=== PATIENT | male | born 1990 | race African-American/Black ===

== ENCOUNTER 2017-08-07 15:05 | Emergency (ER) | payer OTHER ==
[~2017-08-07] VITALS: Ht 188 cm; Wt 70.0 kg
[~2017-08-07 15:05] MED LIST: IBUP-238 PO; LORT5TAB PO; Z.0.NO CURRENT MEDS
[2017-08-07 15:10] VITALS: BP 130/85; PULSE 109; RESP 17; TEMP 98.9; O2SAT 100
[2017-08-07 15:17] VITALS: O2SAT 100
[2017-08-07 15:33] LABS: AUTOMATED NEUTROPHIL # 7.2 TH/MM3 (1.8-7.7); BASOPHIL # 0.1 TH/MM3 (0-0.2); BASOPHIL % 0.6 % (0.0-2.0); EOSINOPHIL # 0.1 TH/MM3 (0-0.4); EOSINOPHIL % 0.8 % (0.0-4.0); HEMATOCRIT 46.5 % (39.0-51.0); HEMOGLOBIN 15.6 GM/DL (13.0-17.0); LYMPHOCYTE # 3.3 TH/MM3 (1.0-4.8); MEAN CELL VOLUME 92.5 FL (80.0-100.0); MEAN CORPUSCULAR HEMOGLOBIN 31.1 PG (27.0-34.0); MEAN CORPUSCULAR HGB CONC 33.6 % (32.0-36.0); MEAN PLATELET VOLUME 7.3 FL (7.0-11.0); MONO % 6.6 % (0.0-8.0); MONOCYTE # 0.8 TH/MM3 (0-0.9); PLATELET COUNT 309 TH/MM3 (150-450); RED BLOOD COUNT 5.03 MIL/MM3 (4.50-5.90); RED CELL DISTRIBUTION WIDTH 14.1 % (11.6-17.2); WHITE BLOOD COUNT 11.5 TH/MM3 (4.0-11.0)
[2017-08-07 16:03] LABS: BICARBONATE 25.1 MEQ/L (21.0-32.0); CALCIUM 9.1 MG/DL (8.5-10.1); CREATININE 1.07 MG/DL (0.60-1.30)
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
[2017-08-07 18:39] VITALS: BP 109/67; PULSE 87; RESP 19; O2SAT 99
[2017-08-07 19:29] VITALS: BP 115/60
== END 2017-08-07 19:30 | disposition home or self-care (01) ==
LOC: NEPC 15:05
DX: F10.129 Alcohol abuse with intoxication, unspecified (principal); S09.90XA Unspecified injury of head, initial encounter; R41.82 Altered mental status, unspecified; V47.6XXA Car passenger injured in collision with fixed or stationary object in traffic accident, initial encounter
CPT/HCPCS: 70450; 72125; 80048; 80307; 85025; 99285

== ENCOUNTER 2018-03-19 04:01 | Observation (INO) ==
[2018-03-19] MEDS ORDERED: Morphine Inj 4 MG/ML Vial IV.PUSH ONE ×2 (04:28→05:25)
[2018-03-19] MEDS ORDERED: Sod Chloride 0.9% Inj 1,000 ML IV.SIG ONE (04:28)
--- NOTE | 2018-03-19 04:32 | ED ---
HPI General Chief Complaint: Extremity Injury, Upper Stated Complaint: Arm injury Time Seen by Provider: 03/19/18 04:28 History of Present Illness HPI narrative: 27-year-old male with left wrist injury status post non-syncopal slip and fall down 4 steps just prior to arrival to the emergency department. Patient states he did not hit his head did not have loss of consciousness did not injure his neck back chest ribs abdomen pelvis or other extremities. Patient states he reached out to prevent injuring himself and injured his left wrist. Patient presents with deformity of the left wrist. Patient is right- handed. Patient denies any numbness tingling or weakness of the digits of the right hand but complains of decreased range of motion at the wrist secondary to pain. No elbow pain no shoulder pain. Related Data Home Medications Medication Instructions Recorded Confirmed No Known Home Medications 03/19/18 03/19/18 Allergies Allergy/AdvReac Type Severity Reaction Status Date / Time No Known Allergies Allergy Verified 03/19/18 04:07 Review of Systems Except as stated in HPI: all other systems reviewed are negative [facility] Medical History Medical History Patient denies medical problems (Acute) Surgical History Surgical History No history of previous surgery (Acute) Social History Social History Substance History: No History of Abuse Smoking Status: Light tobacco smoker Tobacco Type: Smokeless Tobacco How Often Do You Have a Drink Containing Alcohol: Monthly or less Recent Travel in [facility] within the Last 8 Weeks: No Recent Out of Country Travel within the Last 8 Weeks: No Immunization History Tetanus Immunization: <5 Years Hx Influenza Vaccine This Season: Yes Exam Narrative Exam Narrative: GENERAL: Well-developed well-nourished male in obvious discomfort but no acute distress no respiratory distress; GCS 15 SKIN: Focused skin assessment warm/dry. HEAD: Atraumatic. Normocephalic. EYES: Pupils equal and round. No scleral icterus. No injection or drainage. ENT: No nasal bleeding or discharge. Mucous membranes pink and moist. NECK: Trachea midline. No JVD. CARDIOVASCULAR: Regular rate and rhythm. No murmur appreciated. Chest wall: Nontender to palpation superficial abrasion to the right anterior lower chest wall nontender to palpation RESPIRATORY: No accessory muscle use. Clear to auscultation. Breath sounds equal bilaterally. GASTROINTESTINAL: Abdomen soft, non-tender, nondistended. Hepatic and splenic margins not palpable. MUSCULOSKELETAL: No obvious deformities. No clubbing. No cyanosis. No edema. Attention left upper extremity left wrist obvious deformity of the wrist no open wounds no loss distally digits are neurovascular tendon intact and capillary refill is brisk and less than 2 seconds sensory exam intact. Radial and ulnar pulses are 2+ to palpation proximally extremity is neurovascular tendon intact. NEUROLOGICAL: Awake and alert. No obvious cranial nerve deficits. Motor grossly within normal limits. Normal speech. PSYCHIATRIC: Appropriate mood and affect; insight and judgment normal. Course Initial Documented Vital Signs Temperature 97.8 F 03/19/18 04:03 Pulse Rate 109 H 03/19/18 04:03 Respiratory Rate 18 03/19/18 04:03 Blood Pressure 105/70 03/19/18 04:03 Pulse Oximetry 95 03/19/18 04:03 Last Documented Vital Signs Temperature 97.8 F 03/19/18 04:03 Pulse Rate 89 03/19/18 05:30 Respiratory Rate 16 03/19/18 05:30 Blood Pressure 128/66 03/19/18 05:30 Pulse Oximetry 99 03/19/18 05:30 Medical Decision Making [facility] Narrative Medical decision making narrative: IV access obtained specimens collected and sent for resulting imaging study ordered ice pack applied morphine sulfate 4 mg IV administered along with Reglan 10 mg IV Differential Diagnosis Differential Diagnosis: Fracture, fracture dislocation, dislocation, sprain strain Lab Data Result diagrams: 03/19/18 07:05 03/19/18 07:05 Lab Results 03/19/18 03/19/18 03/19/18 Range/Units 07:05 07:05 07:05 WBC 9.6 (4.0-11.0) th/mm3 RBC 4.81 (4.50-5.90) mil/mm3 Hgb 14.6 (13.0-17.0) gm/dL Hct 43.5 (39.0-51.0) % MCV 90.3 (80.0-100.0) fL MCH 30.4 (27.0-34.0) pg MCHC 33.6 (32.0-36.0) % RDW 14.3 (11.6-17.2) % Plt Count 280 (150-450) th/mm3 MPV 7.5 (7.0-11.0) fL Neut % (Auto) 75.7 H (16.0-70.0) % Lymph % (Auto) 18.9 (9.0-44.0) % [place] % (Auto) 4.5 (0.0-8.0) % Eos % (Auto) 0.4 (0.0-4.0) % Baso % (Auto) 0.5 (0.0-2.0) % Neut # (Auto) 7.3 (1.8-7.7) th/mm3 Lymph # (Auto) 1.8 (1.0-4.8) th/mm3 [place] # (Auto) 0.4 (0.0-0.9) th/mm3 Eos # (Auto) 0.0 (0.0-0.4) th/mm3 Baso # (Auto) 0.1 (0.0-0.2) th/mm3 WBC Differential . Differential Comment Auto diff final PT 10.7 (9.8-11.6) sec INR 1.1 Ratio APTT 24.0 L (24.3-30.1) sec Sodium 142 (136-145) meq/L Potassium 3.8 (3.5-5.1) meq/L Chloride 110 H (98-107) meq/L Carbon Dioxide 27.3 (21.0-32.0) meq/L Anion Gap 5 (5-15) meq/L BUN 15 (7-18) mg/dL Creatinine 1.18 (0.60-1.30) mg/dL Estimated GFR 89 (>89) mL/min Random Glucose 93 (74-106) mg/dL Calcium 8.6 (8.5-10.1) mg/dL Imaging Data Radiologist's impression: Wrist X-Ray 03/19/18 04:17 CONCLUSION: 1. Impacted distal radial fracture. 2. Ulnar styloid fracture. Chest X-Ray 03/19/18 06:48 CONCLUSION: No acute cardiopulmonary disease. Discharge Plan Discharge Disposition Patient Disposition: 30 Still Patient Discharge Condition Condition: Stable Discharge Details Diagnosis: Fracture of wrist Physicians Team ED Provider: Alisha Moreland Primary Care Provider: Primary Care Physici,No Rxs /Orders / Referrals /Forms Prescriptions: No Action No Known Home Medications RF: 0 Discharge Interventions Interventions: Vital Signs Last Done: 03/19/18 05:30 Status ED Status: Ready for Discharge
--- NOTE | 2018-03-19 04:51 | XR ---
EXAM DATE: 03/19/2018 4:47 AM EDT AGE/SEX: 27 years / Male INDICATIONS: Left wrist pain after tripping on the stairs today. CLINICAL DATA: This is the patient's initial encounter. Patient reports that signs and symptoms have been present for 1 day and indicates a pain score of 10/10. MEDICAL/SURGICAL HISTORY: None. None. COMPAR[place]: [facility] [place] 2ND D[place] ([id number]), 02/10/2011. . FINDINGS: Impacted fracture of the distal radius. Associated ulnar styloid fracture. Carpal bones appear grossl y intact. Joint spaces are maintained. Soft tissue prominence about the wrist. CONCLUSION: 1. Impacted distal radial fracture. 2. Ulnar styloid fracture. Electronically signed by: Xu Dos Santos MD 03/19/2018 4:50 AM EDT
[2018-03-19] MEDS ORDERED: Ketorolac Inj 30 MG/ML (IVP) Vial IV.PUSH ONE (05:25)
[2018-03-19 07:20] LABS: Baso # (Auto) 0.1 th/mm3 (0.0-0.2); Baso % (Auto) 0.5 % (0.0-2.0); Eos % (Auto) 0.4 % (0.0-4.0); Hematocrit 43.5 % (39.0-51.0); Hemoglobin 14.6 gm/dL (13.0-17.0); Lymph # (Auto) 1.8 th/mm3 (1.0-4.8); Lymph % (Auto) 18.9 % (9.0-44.0); Mean Corpuscular HGB Conc 33.6 % (32.0-36.0); Mean Corpuscular Hemoglobin 30.4 pg (27.0-34.0); Mean Corpuscular Volume 90.3 fL (80.0-100.0); Mean Platelet Volume 7.5 fL (7.0-11.0); Mono # (Auto) 0.4 th/mm3 (0.0-0.9); Mono % (Auto) 4.5 % (0.0-8.0); Neut # (Auto) 7.3 th/mm3 (1.8-7.7); Neut % (Auto) 75.7 % (16.0-70.0); Platelet Count 280 th/mm3 (150-450); Red Blood Count 4.81 mil/mm3 (4.50-5.90); Red Cell Distribution Width 14.3 % (11.6-17.2); White Blood Count 9.6 th/mm3 (4.0-11.0)
[2018-03-19 07:27] LABS: INR 1.1 Ratio; Prothrombin Time 10.7 sec (9.8-11.6)
--- NOTE | 2018-03-19 07:30 | XR ---
EXAM DATE: 03/19/2018 7:14 AM EDT AGE/SEX: 27 years / Male INDICATIONS: Evaluate for pneumothorax, pneumonia, or communicable disease. Pre-operative for left w rist surgery. CLINICAL DATA: This is the patient's initial encounter. Patient reports that signs and symptoms have been present for 1 day and indicates a pain score of 0/10. MEDICAL/SURGICAL HISTORY: None. None. COMPARISON: No prior exams available for comparison. FINDINGS: The lungs are clear without infiltrate, nodule, or mass. There is no appreciable pleural effusion for technique. Heart and mediastinum are unremarkable. CONCLUSION: No acute cardiopulmonary disease. Electronically signed by: Diaz Sykes MD 03/19/2018 7:28 AM EDT
[2018-03-19 07:42] LABS: Calcium 8.6 mg/dL (8.5-10.1); Carbon Dioxide 27.3 meq/L (21.0-32.0); Potassium 3.8 meq/L (3.5-5.1)
--- NOTE | 2018-03-19 08:03 | P.HPOP ---
History of Present Illness Service: Ortho Primary Care Physician: No Primary Care Physician Chief Complaint: Left Distal Radius Fracture History of Present Illness: 27 year old male fell while running up a flight of stairs and broke his fall with his outstretched left hand. He heard a crack and noticed deformity. He also scraped his legs , but no significant injury. Xrays at [facility] [place] [facility] reveals a displaced distal radius fracture with angulation. - Diagnosis (1) Distal radius fracture, left Review of Systems All other systems reviewed negative except as stated [facility] - History History Provided By: Patient - Medical History Medical History: Medical History (Last Reviewed 03/19/18 @ 04:31 by Alisha Moreland MD) Patient denies medical problems - Surgical History Surgical History: Surgical History (Last Reviewed 03/19/18 @ 04:31 by Alisha Moreland MD) No history of previous surgery - Tobacco History Tobacco Use In Past 30 Days: Yes Smoking Status: Light tobacco smoker Tobacco Type: Smokeless Tobacco - Alcohol History How Often Do You Have a Drink Containing Alcohol: Monthly or less - Substance Use History Substance History: No History of Abuse - Travel History Recent Travel in the [facility] Within the Last 8 Weeks: No Recent Travel Out of the Country Within the Last 8 Weeks: No - Immunization History Tetanus Immunization: <5 Years Hx Influenza Vaccine This Season: Yes Medications and Allergies Allergies Allergy/AdvReac Type Severity Reaction Status Date / Time No Known Allergies Allergy Verified 03/19/18 07:58 Home Medications Medication Instructions Recorded Confirmed Type No Known Home Medications 03/19/18 03/19/18 History Exam Vital signs: Vital Signs 03/19/18 04:03 03/19/18 05:30 Temperature 97.8 F Pulse Rate 109 H 89 Respiratory Rate 18 16 Blood Pressure 105/70 128/66 Pulse Oximetry 95 99 Intake & Output 03/18/18 03/19/18 03/19/18 18:59 06:59 18:59 Weight 70.307 kg - Constitutional no acute distress - Routine HEENT Exam Head: Present: normocephalic, atraumatic Eye: Present: EOMI, PERRL, conjunctivae pink ENT: Present: mucous membranes moist - Routine Neck Exam Present: supple - Detailed Neck Exam: Thyroids Thyroid: Present: normal - Routine Respiratory Exam Present: CTA bilaterally - Routine Cardiovascular Exam Present: RRR. Absent: murmur - Routine Abdominal Exam Present: soft, normoactive bowel sounds - Routine Extremities Exam Present: full ROM Comments: left upper extremity splinted Hand NVI - Routine Skin Exam Present: intact - Routine Neurological Exam Present: alert, oriented X3 Results - Labs Result Diagrams: 03/19/18 07:05 03/19/18 07:05 Labs: Laboratory Results - last 24 hr 03/19/18 03/19/18 03/19/18 07:05 07:05 07:05 WBC 9.6 RBC 4.81 Hgb 14.6 Hct 43.5 MCV 90.3 MCH 30.4 MCHC 33.6 RDW 14.3 Plt Count 280 MPV 7.5 Neut % (Auto) 75.7 H Lymph % (Auto) 18.9 [place] % (Auto) 4.5 Eos % (Auto) 0.4 Baso % (Auto) 0.5 Neut # (Auto) 7.3 Lymph # (Auto) 1.8 [place] # (Auto) 0.4 Eos # (Auto) 0.0 Baso # (Auto) 0.1 WBC Differential . Differential Comment Auto diff final PT 10.7 INR 1.1 APTT 24.0 L Sodium 142 Potassium 3.8 Chloride 110 H Carbon Dioxide 27.3 Anion Gap 5 BUN 15 Creatinine 1.18 Estimated GFR 89 Random Glucose 93 Calcium 8.6 - Diagnostic results Imaging: Impressions Wrist X-Ray 03/19/18 04:17 CONCLUSION: 1. Impacted distal radial fracture. 2. Ulnar styloid fracture. Chest X-Ray 03/19/18 06:48 CONCLUSION: No acute cardiopulmonary disease. Caprini VTE Risk Assessment Caprini VTE Risk Assessment: No/Low Risk (score <= 1) Caprini Risk Assessment Model: Point Value = 1 Point Value = 2 Point Value = 3 Point Value = 5 Age 41-60 Minor surgery BMI > 25 kg/m2 Swollen legs Varicose veins or History of unexplained or recurrent spontaneous Oral contraceptives or hormone replacement Sepsis (< 1 month) Serious lung disease, including pneumonia (< 1 month) Abnormal pulmonary function Acute myocardial infarction Congestive heart failure (< 1 month) History of inflammatory bowel disease Medical patient at bed rest Age 61-74 Arthroscopic surgery Major open surgery (> 45 min) Laparoscopic surgery (> 45 min) Malignancy Confined to bed (> 72 hours) Immobilizing plaster cast Central venous access Age >= 75 History of VTE Family history of VTE Factor V Leiden Prothrombin [id number] Lupus anticoagulant Anticardiolipin antibodies Elevated serum homocysteine Heparin-induced thrombocytopenia Other congenital or acquired thrombophilia Stroke (< 1 month) Elective arthroplasty Hip, pelvis, or leg fracture Acute spinal cord injury (< 1 month) Prophylaxis Regimen: Total Risk Factor Score Risk Level Prophylaxis Regimen 0-1 Low Early ambulation 2 Moderate Order ONE of the following: *Sequential Compression Device (SCD) *Heparin 5000 units SQ BID 3-4 Higher Order ONE of the following medications: *Heparin 5000 units SQ TID *Enoxaparin/Lovenox 40 mg SQ daily (WT < 150 kg, CrCl > 30 mL/min) *Enoxaparin/Lovenox 30 mg SQ daily (WT < 150 kg, CrCl > 10-29 mL/min) *Enoxaparin/Lovenox 30 mg SQ BID (WT < 150 kg, CrCl > 30 mL/min) AND/OR *Sequential Compression Device (SCD) 5 or more Highest Order ONE of the following medications: *Heparin 5000 units SQ TID (Preferred with Epidurals) *Enoxaparin/Lovenox 40 mg SQ daily (WT < 150 kg, CrCl > 30 mL/min) *Enoxaparin/Lovenox 30 mg SQ daily (WT < 150 kg, CrCl > 10-29 mL/min) *Enoxaparin/Lovenox 30 mg SQ BID (WT < 150 kg, CrCl > 30 mL/min) AND *Sequential Compression Device (SCD) Assessment and Plan - Problem List (1) Distal radius fracture, left Code(s): S52.502A - Unspecified fracture of the lower end of left radius, initial encounter for closed fracture Status: Acute Qualifiers: Encounter type: initial encounter Fracture type: closed Fracture morphology: Colles' Qualified Code(s): S52.532A - Colles' fracture of left radius, initial encounter for closed fracture Plan: The options of treatment were discussed. The recommendation is surgical repair. A detailed informed consent was obtained. A nurse practitioner, Terrence Yadav is medically necessary to asses in surgery and help with follow up.
[2018-03-19] MEDS ORDERED: ceFAZolin 2 GM Premix Inj 2 GM/50 ML PIGGYBACK IV.SIG ONE (08:17)
[2018-03-19] MEDS ORDERED: Sodium Chlor 0.9% Inj 250 ML ONE (08:18)
[2018-03-19] MEDS ORDERED: Bupivacaine/Epinephrine PF Inj 0.5% 30 ML Vial ONE (08:57)
[2018-03-19] MEDS ORDERED: *Meperidine Inj 25 MG/ML Vial PERIprocedural Use ONLY ONE (10:09)
[2018-03-19] MEDS ORDERED: fentaNYL Citrate Inj 100 MCG/2 ML Ampul ONE (10:11)
--- NOTE | 2018-03-19 10:47 | P.OP ---
- Preoperative Diagnosis (1) Distal radius fracture, left - Postoperative Diagnosis (1) Distal radius fracture, left Date of procedure: 03/19/18 Procedure: Left Distal Radius Open Reduction and Internal Fixation Implants: Synthes locking plate and screws Anesthesia: JOSE Surgeon: Akash Mcmullen MD Air Quality Chemist: Terrence Yadav Estimated blood loss (mL): 75 Tourniquet time (min): 21 Pathology: none sent Operation and Findings: The patient was brought to the OR. He was placed under general anaesthesia. The left upper extremity was prepped and drapped in the usual sterile manner. C- arm was used for visualization of the fracture site. The first aid nurse is an advanced registered nurse practitioner and was medically necessary to assist. The time-out was completed. The arm was exsanguinated and the tourniquet inflated. A Volar approach of [place] was used to expose the fracture site. The Fracture was anatomically reduced. A volar plate was placed and adjusted. One compression screw was placed. xray confirmed good alignment. Multiple locking screws were placed throughout the plate. Final xrays showed the final result. The tourniquet was release. Hemostasis was obtained. Marcaine was injected. We closed in layers with absorbable sutures. a sterile dressing and splint was place. The patient was awoken and returned to the recovery room in stable condition.
[2018-03-19] MEDS ORDERED: Phenylephrine/NS 1000 MCG/10ML Syringe IV.PUSH ONE (12:19)
[2018-03-19] MEDS ORDERED: Succinylcholine Inj 100 MG/5 ML Syringe IV.PUSH ONE (12:19)
[2018-03-19] MEDS ORDERED: Glycopyrrolate Inj 1 MG/5 ML Syringe IV.PUSH ONE (12:19)
[2018-03-19] MEDS ORDERED: Lidocaine PF 1% Inj 5 ML Syringe INFILTRATN ONE (12:19)
[2018-03-19] MEDS ORDERED: Neostigmine Inj 5 MG/5 ML Syringe IV.PUSH ONE (12:19)
--- NOTE | 2018-03-19 12:50 | XR ---
EXAM DATE: 03/19/2018 12:29 PM EDT AGE/SEX: 27 years / Male INDICATIONS: Surgical repair and plate placement for left wrist. CLINICAL DATA: This is the patient's initial encounter. Patient reports that signs and symptoms have been present for 1 day and indicates a pain score of Nonresponsive. MEDICAL/SURGICAL HISTORY: None. None. COMPARISON: C, WRIST COMPLETE LEFT MIN 3V, 03/19/2018. . FINDINGS: Side plate and multiple screws traverse the radius with excellent anatomical alignment of the bony structures. CONCLUSION: Intact postsurgical changes for technique. Electronically signed by: Diaz Sykes MD 03/19/2018 12:49 PM EDT
== END 2018-03-19 12:20 | disposition home or self-care (01) ==
LOC: NEDA 04:01 → NEPC 04:01 → NEDA 08:01
PROVIDERS: ADMIT Orthopaedic Surgery Sports Medicine; ATTEND Orthopaedic Surgery Sports Medicine